=== PATIENT | female | born 1995 | race Caucasian/White ===

== ENCOUNTER 2023-05-13 23:13 | Inpatient (IN) ==
[2023-05-14] MEDS ORDERED: LIDOCAINE 1% LOCAL 20 ML VIAL INFIL PRN (00:31)
[2023-05-14] MEDS ORDERED: OXYTOCIN 30 UNITS/NSS 30 UNITS/500 ML BAG IV PRN ×3 (00:31→08:22)
[2023-05-14] MEDS: LACTATED RINGER'S 1,000 ML IV PRN ×2 (00:57→05:38)
[2023-05-14 01:18] LABS: Hematocrit (blood only) 36.9 % (37.0-47.0); Hemoglobin 12.3 g/dl (12.0-16.0); Mean Corpuscular Hemoglobin 30.2 pg (25.0-34.0); Mean Corpuscular Hgb Conc 33.3 g/dL (32.0-36.0); Mean Corpuscular Volume 90.7 fL (80.0-100.0); Mean Platelet Volume 9.5 fL (9.4-12.4); Platelet Count 251 K/uL (130-400); RDW Coefficient of Variation 12.3 % (11.5-14.5); RDW Standard Deviation 40.7 fL (36.4-46.3); Red Blood Count 4.07 M/uL (4.20-5.40); White Blood Count 10.14 K/ul (4.8-10.8)
[2023-05-14] MEDS ORDERED: fentaNYL citrate PF 100 MCG/2 ML VIAL ONE (05:08)
[2023-05-14] MEDS ORDERED: SODIUM CHLORIDE 0.9% PF INJ 10 ML VIAL ONE (05:08)
[2023-05-14] MEDS ORDERED: ePHEDrine sulfate 50 MG/ML AMP ONE (05:08)
[2023-05-14] MEDS ORDERED: fentANYL 2 MCG/ML BUPIVacaine 0.125%-NSS 100ML BAG ONE (05:09)
[2023-05-14] MEDS ORDERED: BUPIVACAINE 0.25% PF 30 ML VIAL ONE (05:09)
[2023-05-14] MEDS ORDERED: LIDOCAINE 2%/EPINEPHRINE 1:200,000 20 ML PF ONE (05:09)
[2023-05-14] MEDS ORDERED: BUPIVACAINE 0.25% PF 30 ML VIAL EPI STA (05:15)
[2023-05-14] MEDS ORDERED: fentaNYL citrate PF 100 MCG/2 ML VIAL EPI PRN (05:15)
[2023-05-14] MEDS ORDERED: SODIUM CHLORIDE 0.9% PF INJ 10 ML VIAL EPI STA (05:15)
[2023-05-14] MEDS ORDERED: SODIUM CHLORIDE 0.9% PF INJ 10 ML VIAL EPI PRN (05:15)
[2023-05-14] MEDS ORDERED: NALOXONE HCL 1 MG in SODIUM CHLORIDE 0.9% 1,000 ML IV PRN (05:15)
[2023-05-14] MEDS ORDERED: ONDANSETRON INJ 2 MG/ML 2 ML VIAL IV PRN (05:15)
[2023-05-14] MEDS ORDERED: fentaNYL citrate PF 100 MCG/2 ML VIAL EPI STA (05:15)
[2023-05-14] MEDS ORDERED: fentANYL 2 MCG/ML BUPIVacaine 0.125%-NSS 100ML BAG EPI PRN (05:15)
[2023-05-14] MEDS ORDERED: ePHEDrine sulfate 50 MG/ML AMP IV PRN (05:15)
[2023-05-14] MEDS ORDERED: NALBUPHINE HCL 5 MG in SYRINGE 0 ML IV PRN (05:15)
[2023-05-14] MEDS ORDERED: BUPIVACAINE 0.25% PF 30 ML VIAL EPI PRN (05:15)
[2023-05-14] MEDS ORDERED: LIDOCAINE 2%/EPINEPHRINE 1:200,000 20 ML PF EPI STA (05:15)
[2023-05-14] MEDS ORDERED: diphenhydrAMINE 50 MG/ML VIAL IV PRN (05:15)
[2023-05-14] MEDS ORDERED: ROPIVACAINE 0.5% PF 5 MG/ML 20 ML VIAL EPI PRN (05:15)
[2023-05-14] MEDS ORDERED: NALOXONE HCL 0.4 MG/1 ML VIAL/CARP IV PRN (05:15)
[2023-05-14] MEDS ORDERED: LIDOCAINE 2% MPF LOCAL 5 ML VIAL EPI PRN (05:15)
--- NOTE | 2023-05-14 05:17 | Anesthesiology Consultation ---
Date of Service May 14, 2023 Assessment & Plan (1) Encounter for pre-operative examination: Chart Review Chart Review: Patient NOT seen in Pre Admission Testing and Acceptable Risk for Labor Epidural Consults Requested none History Height/Weight Height: 5 ft 11 in Weight: 82.554 kg Allergies Allergy/AdvReac Type Severity Reaction Status Date / Time No Known Allergies Allergy Verified 05/11/23 10:11 Medications Home Medications Medication Instructions Recorded Confirmed Last Taken prenat.vits,tahir,[id number] 1 tab PO DAILY 10/17/22 05/13/23 05/13/23 Active Medications Generic Name Dose Route Start Last Admin Trade Name Freq PRN Reason Stop Dose Admin Oxytocin 30 units in 500 mls @ 8 mls/hr 05/14/23 00:31 05/14/23 04:05 Pitocin 30 Units/Nss IV 05/16/23 00:30 0.72 units/hr .Q24H PRN 12 mls/hr Labor Induction/Augmentation Titration Protocol 0.48 UNITS/HR Lactated Ringer's 1,000 mls @ 125 mls/hr 05/14/23 00:31 05/14/23 00:57 Lr IV 05/16/23 00:30 125 mls/hr .Q8H PRN Administration L&D Protocol Protocol Past Medical History Medical History (Updated 05/14/23 @ 05:17 by Richard Dailey MD) Encounter for pre-operative examination History of chicken pox Exercise / Class Metabolic Activity II 4-5 Yardwork/Stairs/Walk up hill Past Family History Family History Family/Other Breast cancer Grandfather (Paternal) Prostate cancer Other Uterine cancer Denies family history of Ovarian cancer Myocardial infarction Colorectal cancer Past Surgical History Surgical History No history of previous surgery Social History Smoking Status: Never smoker Do You Dip or Chew Tobacco: No Hx Alcohol Use: No Hx Substance Use: No Physical Exam Vital Signs Last Vital Signs Temp 36.8 C 05/14/23 03:35 Pulse 65 05/14/23 05:35 Resp 18 05/13/23 23:41 BP 134/75 05/14/23 05:35 Pulse Ox 100 05/14/23 05:35 Testing Laboratory Results 05/14/23 00:45
[2023-05-14] MEDS ORDERED: bisacodyL 10 MG SUPP PR PRN (08:22)
[2023-05-14] MEDS ORDERED: ACETAMINOPHEN 325 MG TAB PO PRN (08:22)
[2023-05-14] MEDS ORDERED: IBUPROFEN 600 MG TAB PO PRN (08:22)
[2023-05-14] MEDS ORDERED: HYDROCORTISONE ACETATE 25 MG SUPP PR PRN (08:22)
[2023-05-14] MEDS ORDERED: BENZOCAINE 20% SPRY 85 APPLN/85 GM CAN EXT PRN (08:22)
--- NOTE | 2023-05-14 08:54 | Anesthesia Procedure Note ---
Date of Service May 14, 2023 Anesthesia Post Epidural Note Vital Signs Vital Signs: Temp Pulse Resp BP Pulse Ox 36.4 C L 70 18 115/55 L 99 05/14/23 05:10 05/14/23 08:50 05/14/23 06:45 05/14/23 08:41 05/14/23 08:50 Pain Intensity Bilateral Lower Abdomen: Pain Intensity: 2 Right Hip: Pain Intensity: 3 Notes Mental Status: alert / awake / arousable Nausea / Vomiting: adequately controlled Pain: adequately controlled Airway Patency, RR, SpO2: stable & adequate BP & HR: stable & adequate Hydration State: stable & adequate Neuraxial Anesthesia: was administered and sensory block is resolving Anesthetic Complications: no major complications apparent Epidural: Removed without complications and With tip intact
--- NOTE | 2023-05-14 09:50 | History & Physical Report ---
Date of Service May 14, 2023 Assessment & Plan (1) SROM (spontaneous rupture of membranes): Plan: Arelis is a 28-year-old G1, P0 currently at 40 weeks 4 days gestational age presents with spontaneous rupture of membranes. Patient not in labor with rupture going on 6 hours. Recommended Pitocin which patient was agreeable to. Category 1 tracing noted. Will continue to monitor. (2) Supervision of normal first : History of Present Illness Primary Care Provider: NO PCP Arelis is a 28-year-old G1, P0 currently at 40 weeks 3 days gestational age pres ents with spontaneous rupture of membranes. Noted to be grossly ruptured at presentation. Denying any regular or painful contractions. Denies any bleeding and reporting good movement. has been uncomplicated to date OB Labs: Blood Type O Positive 10/17/22 Antibody Screen NEGATIVE 10/17/22 Hemoglobin 12.3 g/dl (12.0-16.0) 02/15/23 Hematocrit 36.5 % (37.0-47.0) L 02/15/23 Mean Corpuscular Volume 86.7 fL (80.0-100.0) 10/17/22 Platelet Count 250 K/uL (130-400) 10/17/22 Rubella IgG Antibody Immune (Immune) 10/17/22 Rapid Plasma Reagin Nonreactive (Nonreactive) 10/17/22 Hepatitis B Surface Antigen. NON-REACTIVE (NON-REACTIVE) 10/17/22 Hepatitis C Antibody (EIA) NON-REACTIVE (NON-REACTIVE) 10/17/22 HIV (1&2) Ag and Ab Confirmation NON-REACTIVE (NON-REACTIVE) 10/17/22 Glucose 1 Hour 50 gm Load 80 mg/dl (70-130) 02/15/23 OB Optional Labs: Chlamydia trachomatis RNA Not Detected (NotDetected) 10/17/22 Neisseria gonorrhoeae RNA Not Detected (NotDetected) 10/17/22 Allergies Allergy/AdvReac Type Severity Reaction Status Date / Time No Known Allergies Allergy Verified 05/11/23 10:11 Home Medications Medication Instructions Recorded Confirmed Type prenat.vits,tahir,srq-[id number]-[id number] 1 tab PO DAILY 10/17/22 05/13/23 History Patient History Medical History (Updated 05/14/23 @ 09:49 by Tom Andujar MD) Encounter for pre-operative examination History of chicken pox Surgical History No history of previous surgery Family History Family/Other Breast cancer Grandfather (Paternal) Prostate cancer Other Uterine cancer Denies family history of Ovarian cancer Myocardial infarction Colorectal cancer Social History Smoking Status: Never smoker Second Hand Exposure: Yes ("very little"); Do You Dip or Chew Tobacco: No; Hx Alcohol Use: No Hx Substance Use: No Preferred Language: Spanish Communication Ability: Effective Building Associate Required: No Beliefs That Will Affect Care: None marital status: marital status details: Josh Neville (31) [phone] Current Living Situation: Spouse Current Living Situation Comment: lives with spouse, dog current occupational status: employed current occupation: house cleaning How many Children do You have: 0 Other Information That Helps Us Care for You: No Feels Safe at Home: Yes Safety Concerns: Feels Safe At This Time Assistive Devices: None Physical Exam Genitourinary: normal external appearance Manual OB Exam: + cervical dilation (Closed), + cervical effacement 50%, + station high and + amniotic fluid (Grossly ruptured) clear OB Exam Monitor Tracing: + external FHT monitor used, + external uterine monitor used, + category I and + normal FHT variability Results & Data Vital Signs (Past 12 Hours) Vital Signs Temp Pulse Resp BP 05/13/23 23:41 36.8 C 60 18 147/89 H 05/13/23 23:35 60 147/89 H Coding Level of Care Code None Diagnoses SROM (spontaneous rupture of membranes) Encounter for supervision of normal first in third trimester Z34.03 Trimester: third trimester (2) Supervision of normal first Trimester: third trimester Qualified Code(s): Z34.03 - Encounter for supervision of normal first , third trimester
--- NOTE | 2023-05-14 09:52 | Delivery Summary ---
Vaginal Delivery Summary Date of Service May 14, 2023 Vaginal Delivery Summary Precipitous delivery noted. Baby delivered in bed and patient alerted nursing about delivery when she felt the baby coming out. Upon arriving to room was already in the warmer and noted to be vigorous. Cord blood was obtained. Attention was turned delivery of the placenta which delivered intact three- vessel cord with just gentle traction. Inspection of the perineum vagina cervix noted no lacerations. Bladder was emptied for 300 mL. No complications with labor or delivery noted. EBL of 200mL [facility] Vaginal Delivery Charge Delivery Type Details:
[2023-05-14] MEDS: DOCUSATE SODIUM 100 MG CAP PO SCH (20:30)
--- NOTE | 2023-05-15 06:54 | Obstetrical Progress Note ---
Date of Service <Ilene Castaneda MD - Last Filed: 05/15/23 07:12> May 15, 2023 Assessment & Plan <Ilene Castaneda MD - Last Filed: 05/15/23 07:12> (1) Encounter for care after hospital delivery: Patient with the above mentioned history and findings was evaluated at bedside and found awake, alert, oriented in all spheres, afebrile, and in no acute distress. Vital signs showed no fever and blood pressures remained stable. Her blood type is O positive and most recent hemoglobin is adequate at 12.3 g/dL. She is GBS negative and rubella immune. Overall, patient is doing well clinically and meeting the desired milestones. Since she is clinically and hemodynamically stable, will discharge today. she was counseled to make an appointment with her OB in 6 weeks for her routine pp evaluation. Discharge instructions discussed. All questions answered. <Tom Andujar MD - Last Filed: 05/15/23 07:40> (1) Encounter for care after hospital delivery: Subjective <Ilene Castaneda MD - Last Filed: 05/15/23 07:12> Arelis is a 28 y/o female who is now PPD # 1 following at 40 4/7 weeks. Reports feeling well overall this morning. Refers mild abdominal cramping & 3/10 pain well managed on analgesics. Voiding spontaneously. Has passed flatus but no bowel movements yet. Tolerating meals overnight and able to ambulate some. Some persistent lochia with some improvement this morning. . Constitutional: no fever, no chills or no sweats Denies shortness of breath or difficulty breathing Cardiovascular: no chest pain or no palpitations Breast: no breast pain Genitourinary (female): no dysuria Neurologic: no headache(s) Denies changes in vision Physical Exam <Ilene Castaneda MD - Last Filed: 05/15/23 07:12> General: Alert. Oriented to person, time, and place. Afebrile. No acute distress. Eyes: pupils equal and reactive to light bilaterally, extraocular movements intact. Cardiac: Regular rate and rhythm, no murmurs/rubs/gallops. Respiratory: Clear to auscultation bilaterally a/p, no wheezes/rales/rhonchi. No increased work of breathing. Symmetrical chest rise. No respiratory distress. Abdomen: Soft, nontender, nondistended. Bowel sounds present. Uterus: Uterine fundus firm, non-tender, and palpable below umbilicus. Lower Extremities: No lower extremity edema or swelling. No deep calf pain. H andrei's negative bilaterally. Psych: Euthymic affect. Mood and affect congruence. Regular speech rate and content. Results & Data <Ilene Castaneda MD - Last Filed: 05/15/23 07:12> Vital Signs (Past 12 Hours) Vital Signs Temp Pulse Resp BP Pulse Ox O2 Del Method 05/15/23 03:25 36.4 C L 72 16 122/79 98 Room Air 05/14/23 23:30 36.7 C 81 16 136/82 98 Room Air 05/14/23 19:50 36.6 C 75 18 133/79 100 Room Air Supervising Physician <Tom Andujar MD - Last Filed: 05/15/23 07:40> Co-Signing Physician Notes Patient seen with resident and agree with the above findings and plan. Stable for discharge Resident Activity Tracking <Ilene Castaneda MD - Last Filed: 05/15/23 07:12> Resident Involvement: Resident Care Provided Care Provided: OB Delivery
[2023-05-15] MEDS ORDERED: FERROUS SULFATE 325 MG TAB PO SCH (08:00)
[2023-05-15] MEDS ORDERED: PRENATAL VITAMIN 1 TAB PO SCH (08:00)
[2023-05-15] MEDS: DOCUSATE SODIUM 100 MG CAP PO SCH (08:07)
[2023-05-15] MEDS ORDERED: DIPHTHERIA/TETANUS/PERTUSSIS Vaccine (Tdap, Age 7+yrs) 0.5mL SYR/VL IM ONE (09:00)
[2023-05-15] MEDS ORDERED: bisacodyL 5 MG TABEC PO SCH (20:00)
== END 2023-05-15 14:35 | disposition home or self-care (01) | DRG 807 ==
LOC: OPB 23:13 → 4S1 23:14 → 4E2 05-14 11:53